=== PATIENT | female | born 1980 | race Caucasian/White ===

== ENCOUNTER 2017-08-02 07:43 | Outpatient (CLI) | payer OTHER | END 2017-08-02 15:12 | disposition home or self-care (01) | LOC: LAB 07:43 | DX: K59.09 Other constipation (principal); K64.8 Other hemorrhoids; N80.5 Endometriosis of intestine; R10.13 Epigastric pain; K21.9 Gastro-esophageal reflux disease without esophagitis ==

== ENCOUNTER 2017-08-02 08:04 | Outpatient (CLI) | payer OTHER | END 2017-08-02 08:24 | disposition home or self-care (01) | LOC: SONOGRAMA 08:04 → MAMO-SONO 08:45 | DX: K59.09 Other constipation (principal); K64.8 Other hemorrhoids; N80.5 Endometriosis of intestine; R10.13 Epigastric pain; K21.9 Gastro-esophageal reflux disease without esophagitis ==

== ENCOUNTER 2017-08-07 05:47 | Day surgery (SDC) | payer OTHER | END 2017-08-07 09:50 | disposition home or self-care (01) | LOC: AMB-ENDOS 05:47 | DX: D13.0 Benign neoplasm of esophagus (principal); D13.1 Benign neoplasm of stomach; D13.2 Benign neoplasm of duodenum; K29.70 Gastritis, unspecified, without bleeding; K64.8 Other hemorrhoids ==